=== PATIENT | male | born 1955 | race Caucasian/White ===

== ENCOUNTER 2016-07-16 14:13 | Emergency (ER) | payer MEDICAID ==
[~2016-07-16] VITALS: Ht 175.3 cm; Wt 91.6 kg
[~2016-07-16 14:13] MED LIST: ALBUPOW26 XX; ALPR0.5T PO; ASPI-231 PO; ATOR40TA52 PO; CARI-277 PO; CHOL20007 OR; CLOP75TA28 PO; FENO5TAB PO; GABA-494 PO; GLIM2TAB33 PO; LEVO100T8 PO; LIS10T PO; METF-489 PO; METO-169 PO; MORP15TA PO; OMEP20TA44 PO; SERT-160 PO; TRAZ100T2 PO; ZOLP10TA PO
[2016-07-16 14:37] VITALS: BP 139/86
== END 2016-07-16 16:45 | disposition left against medical advice (07) ==
LOC: ER 14:13
DX: R05 Cough (principal); Z53.21 Procedure and treatment not carried out due to patient leaving prior to being seen by health care provider
CPT/HCPCS: 71020

== ENCOUNTER 2016-07-17 12:40 | Inpatient (IN) | payer MEDICAID ==
[~2016-07-17] VITALS: Ht 175.3 cm; Wt 91.6 kg
[2016-07-17 13:35] LABS: Basophils # (auto) 0 uL; Basophils % (auto) 0.4 % (0.0-2.0); Eosinophils # (auto) 0.2 uL; Eosinophils % (auto) 1.9 % (0.0-7.0); Hematocrit 43.2 % (41.0-53.0); Hemoglobin 14.8 g/dL (13.5-17.5); Lymphocytes # (auto) 1.4 uL; Lymphocytes % (auto) 14.1 % (10.0-50.0); Mean Corpuscular Hemoglobin 30.1 pg (28.0-32.0); Mean Corpuscular Hgb Conc. 34.2 g/dL (32.0-36.0); Mean Platelet Volume 8.9 fL (7.4-10.4); Monocytes # (auto) 0.8 uL; Monocytes % (auto) 8.1 % (0.0-12.0); Neutrophils # (auto) 7.6 uL; Neutrophils % (auto) 75.5 % (37.0-80.0); Platelet Count (auto) 229 10^3/uL (140-450); Red Cell Distribution Width 14.4 % (11.6-16.0); White Blood Cell 10.1 10^3/uL (4.4-10.8)
[2016-07-17 14:03] LABS: Albumin 3.6 g/dL (3.4-5.0); BUN/Creatinine Ratio 8.9; Bilirubin, Total 1.1 mg/dL (0.2-1.0); Magnesium 1.2 mg/dL (1.6-2.6); Potassium 4.1 mmol/L (3.5-5.1); Total Protein 7.8 g/dL (6.4-8.2)
[2016-07-17] MEDS ORDERED: SODIUM CHLORIDE 0.9% 1,000 ML IVB ONE (14:19)
[2016-07-17] MEDS ORDERED: ONDANSETRON HCL 4 MG/2 ML VIAL IV ONE ×2 (14:30→17:30)
[2016-07-17 14:42] LABS: Magnesium 1.3 mg/dL (1.6-2.6)
[2016-07-17 15:08] LABS: INR 1.09 (0.9-1.15); Partial Thromboplastin Time 28.4 sec (22.64-33.71); Prothrombin Time 11.2 sec (9.37-12.3)
[2016-07-17] MEDS: MAGNESIUM SULFATE 1GM/100ML 100 ML IV SCH ×2 (17:00→18:00)
[2016-07-17] MEDS ORDERED: MORPHINE SULF INJ 2 MG/ML SYRINGE 1ML IV ONE (17:30)
[2016-07-17] MEDS ORDERED: ALPRAZolam 0.5 MG TAB PO PRN (18:15)
[2016-07-17] MEDS ORDERED: MILK OF MAGNESIA 30ML SUSP PO PRN (18:15)
[2016-07-17] MEDS ORDERED: PROMETHAZINE HCL 25 MG/ML 1ML IV PRN (18:15)
[2016-07-17] MEDS ORDERED: ACETAMINOPHEN 500 MG TAB PO PRN (18:15)
[2016-07-17] MEDS ORDERED: MORPHINE SULF INJ 2 MG/ML SYRINGE 1ML IV PRN (18:15)
[2016-07-17] MEDS ORDERED: LORazepam 2MG/ML-1ML VIAL IV PRN (18:15)
[2016-07-17] MEDS ORDERED: NITROGLYCERIN 0.4 MG SL TAB SL PRN (18:15)
[2016-07-17] MEDS ORDERED: DEXTROSE (50%) 50ML SYRG IV PRN (18:15)
[2016-07-17] MEDS ORDERED: LABETALOL HCL 5 MG/ML 4ML SYRINGE IV PRN ×2 (18:30)
[2016-07-17] MEDS ORDERED: ALBUTEROL SULF 2.5 MG/0.5ML(0.5%) NEB SOLN NEB PRN (20:00)
[2016-07-17] MEDS: SODIUM CHLORIDE 0.9% 1,000 ML IV SCH (20:00)
[2016-07-17] MEDS: DOXYCYCLINE HYC 100MG/250ML 250 ML IV SCH (20:44)
[2016-07-17 21:40] VITALS: BP 126/63
[2016-07-17 22:00] VITALS: BP 145/85
[2016-07-17] MEDS: ZOLPIDEM TARTRATE 5 MG TAB PO SCH (22:00)
[2016-07-17] MEDS: traZODone HCL 50 MG TAB PO SCH (22:21)
[2016-07-17] MEDS: ATORVASTATIN 20 MG TAB PO SCH (22:22)
[2016-07-17] MEDS: GABAPENTIN 100 MG CAP PO SCH (22:22)
[2016-07-17] MEDS: CARISOPRODOL 350 MG TAB PO SCH (22:22)
[2016-07-17 23:46] VITALS: BP 145/84
[2016-07-18] MEDS ORDERED: ALBUTEROL SULF 2.5 MG/0.5ML(0.5%) NEB SOLN NEB PRN
[2016-07-18] MEDS: ACCU-CHEK COMFORT CURVE STRIP VI SCH ×5 (00:42→23:43)
[2016-07-18] MEDS: InsuLIN REG 1unit/0.01ml Soln (100units/ml) SC SCH ×4 (00:45→18:00)
[2016-07-18] MEDS: ALBUTEROL SULF 2.5 MG/0.5ML(0.5%) NEB SOLN NEB SCH ×4 (01:06→19:17)
[2016-07-18] MEDS: IPRATROPIUM BROM 0.5 MG/2.5ML INH SOL NEB SCH ×4 (01:07→19:17)
[2016-07-18] MEDS: MORPHINE SULF INJ 2 MG/ML SYRINGE 1ML IV PRN ×2 (01:36→23:41)
[2016-07-18 05:00] VITALS: BP 101/64
[2016-07-18] MEDS: SODIUM CHLORIDE 0.9% 1,000 ML IV SCH ×3 (05:47→20:06)
[2016-07-18] MEDS: CARISOPRODOL 350 MG TAB PO SCH ×3 (05:47→20:07)
[2016-07-18 06:13] LABS: Basophils # (auto) 0 uL; Basophils % (auto) 0.4 % (0.0-2.0); Eosinophils # (auto) 0.2 uL; Eosinophils % (auto) 3.4 % (0.0-7.0); Hematocrit 36.4 % (41.0-53.0); Hemoglobin 12.3 g/dL (13.5-17.5); Lymphocytes # (auto) 1.3 uL; Lymphocytes % (auto) 20.1 % (10.0-50.0); Mean Corpuscular Hemoglobin 29.8 pg (28.0-32.0); Mean Corpuscular Hgb Conc. 33.7 g/dL (32.0-36.0); Mean Corpuscular Volume 88.4 fL (80.0-100.0); Mean Platelet Volume 8.7 fL (7.4-10.4); Monocytes # (auto) 0.6 uL; Monocytes % (auto) 9.2 % (0.0-12.0); Neutrophils # (auto) 4.5 uL; Neutrophils % (auto) 66.9 % (37.0-80.0); Platelet Count (auto) 186 10^3/uL (140-450); Red Cell Distribution Width 13.8 % (11.6-16.0); White Blood Cell 6.7 10^3/uL (4.4-10.8)
[2016-07-18] MEDS: GLIMEPIRIDE 2 MG TAB PO SCH (06:42)
[2016-07-18] MEDS: LEVOTHYROXINE SODIUM 100 MCG TAB PO SCH (06:43)
[2016-07-18 06:48] LABS: Albumin 2.9 g/dL (3.4-5.0); BUN/Creatinine Ratio 8.6; Bilirubin, Total 0.7 mg/dL (0.2-1.0); Calcium 8.2 mg/dL (8.5-10.1); Potassium 4.5 mmol/L (3.5-5.1); Total Protein 6.5 g/dL (6.4-8.2)
[2016-07-18] MEDS: DOXYCYCLINE HYC 100MG/250ML 250 ML IV SCH ×2 (08:18→20:06)
[2016-07-18] MEDS: HYDROcodone-ACET 5/325MG TAB PO PRN ×2 (08:28→20:06)
[2016-07-18 09:00] VITALS: BP 103/68
[2016-07-18] MEDS: FENOFIBRATE 160 MG PO SCH (10:00)
[2016-07-18] MEDS: PANTOPRAZOLE 40 MG TAB PO SCH (10:23)
[2016-07-18] MEDS: SERTRALINE HCL 50 MG TAB PO SCH (10:24)
[2016-07-18] MEDS: ASPirin-EC 81 mg tab PO SCH (10:24)
[2016-07-18] MEDS: CLOPIDOGREL BISULFATE 75 MG TAB PO SCH (10:25)
[2016-07-18] MEDS: CHOLECALCIFEROL (VITD3) 1,000 UNIT TAB PO SCH (10:26)
[2016-07-18 13:00] VITALS: BP 110/69
[2016-07-18 17:00] VITALS: BP 95/56
[2016-07-18] MEDS: GABAPENTIN 100 MG CAP PO SCH (20:06)
[2016-07-18] MEDS: ZOLPIDEM TARTRATE 5 MG TAB PO SCH (20:06)
[2016-07-18] MEDS: traZODone HCL 50 MG TAB PO SCH (20:06)
[2016-07-18] MEDS: ATORVASTATIN 20 MG TAB PO SCH (20:06)
[2016-07-18 23:05] VITALS: BP 96/57
[2016-07-19] MEDS: IPRATROPIUM BROM 0.5 MG/2.5ML INH SOL NEB SCH ×3 (00:10→12:45)
[2016-07-19] MEDS: ALBUTEROL SULF 2.5 MG/0.5ML(0.5%) NEB SOLN NEB SCH ×3 (00:10→12:45)
[2016-07-19 05:02] VITALS: BP 100/62
[2016-07-19] MEDS: LEVOTHYROXINE SODIUM 100 MCG TAB PO SCH (05:17)
[2016-07-19] MEDS: GLIMEPIRIDE 2 MG TAB PO SCH (05:18)
[2016-07-19] MEDS: ACCU-CHEK COMFORT CURVE STRIP VI SCH ×2 (05:18→12:00)
[2016-07-19] MEDS: HYDROcodone-ACET 5/325MG TAB PO PRN (05:18)
[2016-07-19] MEDS: CARISOPRODOL 350 MG TAB PO SCH (05:18)
[2016-07-19] MEDS: InsuLIN REG 1unit/0.01ml Soln (100units/ml) SC SCH ×3 (05:39→12:00)
[2016-07-19] MEDS: DOXYCYCLINE HYC 100MG/250ML 250 ML IV SCH (08:07)
[2016-07-19 09:00] VITALS: BP 109/68
[2016-07-19] MEDS: CHOLECALCIFEROL (VITD3) 1,000 UNIT TAB PO SCH (09:50)
[2016-07-19] MEDS: CLOPIDOGREL BISULFATE 75 MG TAB PO SCH (09:51)
[2016-07-19] MEDS: PANTOPRAZOLE 40 MG TAB PO SCH (09:51)
[2016-07-19] MEDS: ASPirin-EC 81 mg tab PO SCH (09:51)
[2016-07-19] MEDS: SERTRALINE HCL 50 MG TAB PO SCH (09:52)
[2016-07-19] MEDS: FENOFIBRATE 160 MG PO SCH (10:00)
[2016-07-19] MEDS: SODIUM CHLORIDE 0.9% 1,000 ML IV SCH (10:15)
[2016-07-19 12:29] VITALS: BP 109/68
[2016-07-19 12:43] VITALS: BP 103/67
== END 2016-07-19 13:24 | disposition home or self-care (01) ==
LOC: ER 12:52 → TELE 12:53 → TELE-WESTW 21:23
PROVIDERS: ADMIT Internal Medicine; ATTEND Internal Medicine Pulmonary Disease
DX: K80.20 Calculus of gallbladder without cholecystitis without obstruction (principal); I95.9 Hypotension, unspecified; I11.0 Hypertensive heart disease with heart failure; I50.9 Heart failure, unspecified; K76.0 Fatty (change of) liver, not elsewhere classified; J44.1 Chronic obstructive pulmonary disease with (acute) exacerbation; E83.42 Hypomagnesemia; K57.30 Diverticulosis of large intestine without perforation or abscess without bleeding; Z95.1 Presence of aortocoronary bypass graft; Z95.5 Presence of coronary angioplasty implant and graft; K40.20 Bilateral inguinal hernia, without obstruction or gangrene, not specified as recurrent; I25.10 Atherosclerotic heart disease of native coronary artery without angina pectoris; E11.9 Type 2 diabetes mellitus without complications; E78.5 Hyperlipidemia, unspecified; K57.90 Diverticulosis of intestine, part unspecified, without perforation or abscess without bleeding; J45.909 Unspecified asthma, uncomplicated; E03.9 Hypothyroidism, unspecified; K29.00 Acute gastritis without bleeding; Z82.0 Family history of epilepsy and other diseases of the nervous system; Z82.3 Family history of stroke; Z82.49 Family history of ischemic heart disease and other diseases of the circulatory system; Z83.3 Family history of diabetes mellitus; Z87.891 Personal history of nicotine dependence; F32.9 Major depressive disorder, single episode, unspecified; Z88.0 Allergy status to penicillin; Z91.02 Food additives allergy status; Z79.82 Long term (current) use of aspirin; Z80.9 Family history of malignant neoplasm, unspecified; Z81.1 Family history of alcohol abuse and dependence; Z83.6 Family history of other diseases of the respiratory system
CPT/HCPCS: 36415; 71010; 74176; 80053; 82150; 82962; 83036; 83690; 83735; 84484; 85025; 85610; 85652; 85730; 86141; 87070; 87205; 93005; 94640; 94761; 96361; 96365; 96375; 96376; J1815; J2405; J3490

== ENCOUNTER 2017-03-23 12:36 | Emergency (ER) | payer MEDICAID ==
[~2017-03-23] VITALS: Ht 175.3 cm; Wt 81.6 kg
[2017-03-23 14:10] LABS: Basophils # (auto) 0 uL; Basophils % (auto) 0.5 % (0.0-2.0); Eosinophils # (auto) 0.1 uL; Eosinophils % (auto) 2.2 % (0.0-7.0); Hematocrit 40.3 % (41.0-53.0); Hemoglobin 13.5 g/dL (13.5-17.5); Lymphocytes # (auto) 1.4 uL; Lymphocytes % (auto) 20.4 % (10.0-50.0); Mean Corpuscular Hemoglobin 30.3 pg (28.0-32.0); Mean Corpuscular Hgb Conc. 33.5 g/dL (32.0-36.0); Mean Corpuscular Volume 90.5 fL (80.0-100.0); Mean Platelet Volume 8.1 fL (6.9-10.8); Monocytes # (auto) 0.4 uL; Monocytes % (auto) 6.6 % (0.0-12.0); Neutrophils # (auto) 4.8 uL; Neutrophils % (auto) 70.3 % (37.0-80.0); Platelet Count (auto) 217 10^3/uL (140-450); Red Cell Distribution Width 14.7 % (11.8-14.3); White Blood Cell 6.8 10^3/uL (4.4-10.8)
[2017-03-23 14:17] LABS: INR 0.98 (0.9-1.15); Partial Thromboplastin Time 27.4 sec (22.64-33.71); Prothrombin Time 10.7 sec (9.37-12.3)
[2017-03-23 14:25] LABS: Albumin 3.7 g/dL (3.4-5.0); Alkaline Phosphatase 53 U/L (45-117); Anion Gap 8 (5-15); Aspartate Aminotransferase 11 U/L (15-37); BUN/Creatinine Ratio 7.1; Bilirubin, Total 0.5 mg/dL (0.2-1.0); Blood Urea Nitrogen 8 mg/dL (7-18); Calcium 8.9 mg/dL (8.5-10.1); Carbon Dioxide 29 mmol/L (21-32); Chloride 102 mmol/L (98-107); GFR African American 86 mL/min; GFR Non-African American 71 mL/min; Glucose 97 mg/dL (74-106); Magnesium 1.6 mg/dL (1.6-2.6); Potassium 3.6 mmol/L (3.5-5.1); Sodium 139 mmol/L (136-145); Total Protein 7.5 g/dL (6.4-8.2)
[2017-03-23 14:28] LABS: B-Type Natriuretic Peptide 37.81 pg/mL (0-100)
[2017-03-23] MEDS ORDERED: cefTRIAXone 1GM/50ML D5W 50 ML IV ONE (14:30)
[2017-03-23] MEDS ORDERED: ALBUTEROL SULF 2.5 MG/0.5ML(0.5%) NEB SOLN NEB ONE (14:30)
[2017-03-23] MEDS ORDERED: methylPREDNISolone SOD SUCC 125 MG/2 ML VL IV ONE (14:30)
[2017-03-23] MEDS ORDERED: IPRATROPIUM BROM 0.5 MG/2.5ML INH SOL NEB ONE (14:30)
[2017-03-23 14:36] LABS: Temperature: 24.3 C (20.0-25.0)
[2017-03-23 16:13] LABS: Urine RBC None Seen /hpf (0 - 3)
[2017-03-23 16:24] LABS: Urine Bilirubin Negative (Negative); Urine Blood Negative /uL (Negative); Urine Color Yellow (Yellow); Urine Glucose Normal (Normal); Urine Ketone Negative (Negative); Urine Nitrite Negative (Negative); Urine Urobilinogen Normal (Negative); Urine pH 6.5 (5.0-8.0)
[2017-03-23 16:47] VITALS: BP 121/67
== END 2017-03-23 17:51 | disposition home or self-care (01) ==
LOC: ER 12:36 → EDBD 12:36 → ER 17:51
DX: J44.1 Chronic obstructive pulmonary disease with (acute) exacerbation (principal); E11.9 Type 2 diabetes mellitus without complications; I11.0 Hypertensive heart disease with heart failure; I50.9 Heart failure, unspecified; I25.810 Atherosclerosis of coronary artery bypass graft(s) without angina pectoris; K21.9 Gastro-esophageal reflux disease without esophagitis; E78.5 Hyperlipidemia, unspecified; Z98.61 Coronary angioplasty status; Z95.1 Presence of aortocoronary bypass graft
CPT/HCPCS: 36415; 71020; 80053; 81001; 83735; 83880; 84484; 85025; 85610; 85730; 93005; 94640; 96365; 96375; 99285; J0696; J2930